=== PATIENT | female | born 1990 | race Caucasian/White ===

== ENCOUNTER 2016-08-22 18:43 | Emergency (ER) | payer OTHER ==
[~2016-08-22] VITALS: Ht 157.5 cm; Wt 72.5 kg
[~2016-08-22 18:43] MED LIST: PRED20TA PO
[2016-08-22 18:46] VITALS: Ht 157.5 cm; Wt 72.5 kg
[2016-08-22] MEDS ORDERED: KETOROLAC 30 MG INJ IV STA (19:26)
[2016-08-22] MEDS ORDERED: SOD CHLORIDE 0.9% 2,250 ML IV ONE (19:30)
[2016-08-22] MEDS ORDERED: morphine 2 MG INJ IV ONE (19:30)
[2016-08-22 20:04] LABS: ADD UMIC YES; UR BILIRUBIN (Dip) NEGATIVE (NEGATIVE); UR BLOOD (Dip) 2+ (NEGATIVE); UR CLARITY CLEAR (CLEAR); UR COLOR LT. YELLOW (YELLOW); UR GLUCOSE (Dip) NEGATIVE (NEGATIVE); UR KETONES (Dip) 40 (NEGATIVE); UR LEUKOCYTE ESTERASE (Dip) 1+ (NEGATIVE); UR NITRITE (Dip) NEGATIVE (NEGATIVE); UR TOTAL PROTEIN (Dip) NEGATIVE (NEGATIVE); UR UROBILINOGEN (Dip) 2.0 E.U./dL (0.1-1.0)
[2016-08-22 20:07] LABS: ADD SCAN DIFF NO
[2016-08-22 20:13] LABS: ABNORMAL IP MESSAGE 1; HEMATOCRIT 35.1 % (37.0-47.0); HEMOGLOBIN 12.1 g/dl (12.0-16.0); MEAN CORPUSCULAR HEMOGLOBIN 32.8 pg (29.0-33.0); MEAN CORPUSCULAR HGB CONC 34.5 g/dl (32.0-37.0); MEAN CORPUSCULAR VOLUME 95.1 fl (82.0-101.0); MEAN PLATELET VOLUME 9.9 fl (7.4-10.4); PLATELET COUNT 246 10^3/UL (140-415); RED BLOOD COUNT 3.69 10^6/ul (4.20-5.40); RED CELL DISTRIBUTION WIDTH 11.9 % (11.5-14.5); WHITE BLOOD COUNT 16.7 10^3/ul (4.8-10.8)
[2016-08-22 20:19] LABS: UR SQUAMOUS EPITHELIAL CELL MODERATE; URINE RBCS 0-2 /HPF (0)
--- NOTE | 2016-08-22 20:26 | ERA ---
ER Documentation Chief Complaint Date/Time DATE: 08/22/16 TIME: 20:22 Chief Complaint RLQ abd pain x 1 week, worst today HPI Patient is presented for chief complaint of abdominal pain 6 days. Patient describes lower right quadrant abdominal pain. Describes urinary urgency and hematuria for the past 3 days. Is sexually active. Patient has been able to tolerate p.o. Patient has vomited multiple times but not every day over the past few days. Patient denies bilious vomiting. Patient symptoms worsen with food. Patient denies anorexia, weight loss, migrating pain, constipation, postprandial abdominal pain, new or recently changed medications, genital pain or ingestion of new or undercooked food. ROS All systems reviewed and are negative except as per history of present illness. Medications Home Meds Active Scripts Ciprofloxacin Hcl* (Ciprofloxacin Hcl*) 500 Mg Tablet, 500 MG PO BID for 14 Days , TAB Prov:MELANY HELLER PA-C 08/22/16 Prednisone* (Prednisone*) 20 Mg Tab, 20 MG PO BID for 5 Days, TAB Prov:ARSLAN VELASQUEZ PA-C 09/10/14 Allergies Allergies: Coded Allergies: No Known Allergy (Unverified , 09/10/14) PMhx/Soc Hx Miscellaneous Medical Probl: Yes (anxiety ) Hx Alcohol Use: No Hx Substance Use: No Hx Tobacco Use: No Physical Exam Vitals Physical Exam Const: Overweight 25-year-old female Head: Atraumatic Eyes: Normal Conjunctiva no jaundice noted. ENT: Normal External Ears, Nose and Mouth. Neck: Full range of motion..~ No meningismus. Resp: Clear to auscultation bilaterally Cardio: Regular rate and rhythm, no murmurs. Capillary refill within normal limits. Abd: Soft, non distended. Normal bowel sounds. Minimal right upper quadrant tenderness. Negative Gibson sign. Minimal epigastric tenderness. Marked suprapubic tenderness. No tenderness in any other section of abdomen. Liver edge not palpable. Abdominal aorta not palpable. Spleen appreciated with palpation or percussion. Negative psoas, obturator and rovsing signs. Skin: No petechiae or rashes. No jaundice noted. Back: No CVA tenderness. No midline or flank tenderness Ext: No cyanosis, or edema Neur: Awake and alert. Neurovascularly intact bilaterally. Psych: Normal Mood and Affect Results 24 hrs Laboratory Tests Test 08/22/16 19:20 08/22/16 19:50 08/22/16 21:55 Urine Color LT. YELLOW Urine Clarity CLEAR Urine pH 7.0 Urine Specific [place] 1.015 Urine Ketones 40 Urine Nitrite NEGATIVE Urine Bilirubin NEGATIVE Urine Urobilinogen 2.0 E.U./dL Urine Leukocyte Esterase 1+ Urine Microscopic RBC 0-2/HPF Urine Microscopic WBC 0-2/HPF Urine Squamous Epithelial Cells MODERATE Urine Hemoglobin 2+ Urine Glucose NEGATIVE% Urine Total Protein NEGATIVE White Blood Count 16.710^3/ul Red Blood Count 3.6910^6/ul Hemoglobin 12.1g/dl Hematocrit 35.1% Mean Corpuscular Volume 95.1fl Mean Corpuscular Hemoglobin 32.8pg Mean Corpuscular Hemoglobin Concent 34.5g/dl Red Cell Distribution Width 11.9% Platelet Count 42448^3/UL Mean Platelet Volume 9.9fl Neutrophils % 91.0% Lymphocytes % 5.0% Monocytes % 4.0% Neutrophils # 15.210^3/ul Lymphocytes # 0.810^3/ul Monocytes # 0.710^3/ul Platelet Estimate PLT APPEAR ADEQUATE Macrocytosis OCCASIONAL Prothrombin Time 14.2Sec Prothrombin Time Ratio 1.1 INR International Normalized Ratio 1.10 Activated Partial Thromboplast Time 30.3Sec Sodium Level 138mmol/L Potassium Level 3.3mmol/L Chloride Level 103mmol/L Carbon Dioxide Level 23mmol/L Anion Gap 15 Blood Urea Nitrogen 9mg/dl Creatinine 0.73mg/dl Glucose Level 105mg/dl Lactic Acid Level 1.3mmol/L 1.4mmol/L Calcium Level 9.4mg/dl Total Bilirubin 0.5mg/dl Direct Bilirubin 0.00mg/dl Indirect Bilirubin 0.5mg/dl Aspartate Amino Transf (AST/SGOT) 18IU/L Alanine Aminotransferase (ALT/SGPT) 26IU/L Alkaline Phosphatase 92IU/L Total Protein 8.3g/dl Albumin 5.1g/dl Globulin 3.20g/dl Albumin/Globulin Ratio 1.59 Lipase 67U/L Current Medications Medications (Trade) Dose Ordered Sig/Fior Route PRN Reason Start Time Stop Time Status Last Admin Dose Admin Sodium Chloride (NS) 2,250 ml @ 2,250 mls/hr BOLUS X1 ONCE IV 08/22/16 19:30 08/22/16 20:29 DC 08/22/16 19:53 Ketorolac Tromethamine (Toradol) 30 mg ONCE STAT IV 08/22/16 19:26 08/22/16 19:31 DC 08/22/16 19:53 Morphine Sulfate (morphine) 2 mg ONCE ONCE IV 08/22/16 19:30 08/22/16 19:31 DC 08/22/16 19:53 Procedures/MDM Patient is being worked up and evaluated for abdominal discomfort. Patient met sepsis protocol, so sepsis panel was ordered. Due to low clinical suspicion for sepsis antibiotics were held until lactate came back. 2mg of Morphine IV and 15mg of Toradol IV were given in the ED with relief of symptoms. EKG was read by Dr. Bliss; results were unremarkable showing normal sinus rhythm with tachycardia. Urine test was negative. CBC was significant for leukocytosis with increased neutrophils. Urine was positive for leukocyte esterase and hemoglobin. LFTs were unremarkable. The most likely diagnosis at this time is cystitis. I have little suspicion for appendicitis, ectopic , ovarian torsion, cholecystitis, cholangitis, or pyelonephritis. The patient is well appearing and tolerates PO. Reexamination of the abdomen yields improvement of symptoms with only mild suprapubic tenderness. The patient's current condition is appropriate for discharge. I have spoken with the patient about the necessity for followup in 12 hours and she has verbally stated that she understands. Discharge instructions with return precautions will be given. Departure Diagnosis: Primary Impression: Cystitis Condition: Stable Additional Instructions: Follow up with your PCP within the next 1-3 days for a more thorough evaluation and a possible referral to a specialist. Return the the emergency department immediately if symptoms worsen or change. If you have any questions regarding medications, ask your pharmacist or us before you leave. If any adverse reactions occur while taking your medications, discontinue the treatment and return to the emergency department immediately. Take your medications as directed, and complete the entire course of treatment. MELANY HELLER PA-C Aug 22, 2016 20:26
[2016-08-22 20:27] LABS: INR 1.1; PROTIME 14.2 Sec (12.2-14.2); PT RATIO 1.1
[2016-08-22 20:31] LABS: ALBUMIN 5.1 g/dl (3.3-4.9); ALBUMIN/GLOBULIN RATIO 1.59; BILIRUBIN,INDIRECT 0.5 mg/dl (0-1.1); BILIRUBIN,TOTAL 0.5 mg/dl (0.2-1.3); CALCIUM 9.4 mg/dl (8.4-10.2); CREATININE 0.73 mg/dl (0.44-1.00); POTASSIUM 3.3 mmol/L (3.5-5.1); TOTAL PROTEIN 8.3 g/dl (6.1-8.1)
[2016-08-22 20:32] LABS: PARTIAL THROMBOPLASTIN TIME 30.3 Sec (25.0-35.0)
[2016-08-22 20:59] LABS: LYMPHOCYTES # 0.8 10^3/ul (0.8-2.9); MONOCYTE # 0.7 10^3/ul (0.3-0.9); NEUTROPHIL # 15.2 10^3/ul (1.6-7.5)
[2016-08-22 21:00] LABS: PLATELET ESTIMATE PLT APPEAR ADEQUATE
[2016-08-22 22:26] VITALS: BP 104/58; PULSE 92; RESP 16; TEMP 99.4
[2016-08-22] MEDS ORDERED: CIPR500T4 PO (22:50)
== END 2016-08-22 23:08 | disposition home or self-care (01) ==
LOC: FTE 18:43
DX: N30.90 Cystitis, unspecified without hematuria (principal)
CPT/HCPCS: 36415; 80053; 81001; 83605; 83690; 85025; 85610; 85730; 87040; 87086; 93005; 96374; 96375; J1885; J2270; J7030; Z7502

== ENCOUNTER 2017-07-04 16:38 | Emergency (ER) | END 2017-07-04 22:18 | disposition home or self-care (01) ==